=== PATIENT | female | born 1995 | race Caucasian/White ===

== ENCOUNTER 2018-06-13 22:53 | Emergency (ER) | payer SELFPAY ==
[2018-06-13 23:05] VITALS: BP 112/71; PULSE 76; RESP 18; TEMP 36.6; O2SAT 100; BMI 24.0
--- NOTE | 2018-06-14 00:23 | DI.RAD.S_ITS ---
PROCEDURE: XR CHEST 1V INDICATIONS: syncope TECHNIQUE: One view of the chest was acquired. COMPARISON: None. FINDINGS: Surgical changes and devices: None. Lungs and pleura: No pleural effusions or pneumothorax. Lungs are clear. Mediastinum: Mediastinal contours appear normal. Heart size is normal. Bones and chest wall: No suspicious bony lesions. Overlying soft tissues appear unremarkable. IMPRESSION: No acute pulmonary process. Dictated by: Joy Mcintyre M.D. on 06/14/2018 at 8:56 Approved by: Joy Mcintyre M.D. on 06/14/2018 at 8:56
[2018-06-14 00:44] VITALS: BP 115/75; PULSE 76; RESP 18; O2SAT 100
--- NOTE | 2018-06-14 00:49 | ED.SYNCOPE ---
HPI - Syncope General Chief Complaint: Syncope Stated Complaint: FAINTED, LT SIDED NUMBNESS Time Seen by Provider: 06/14/18 00:21 Source: patient and other (friends) Mode of arrival: ambulatory Limitations: no limitations History of Present Illness HPI narrative: This is a 23-year-old female who comes to the emergency department with complaint of syncope. Patient states that she had been dabbing or beeping and smoking marijuana as well as had a beer this evening. Patient states that she did really have any preliminary warning signs and then passed out. She states that she could really here he states could really see anything. She feels like she was out for a minute or 2. She still feels a little bit weak. She denies any headache, no vision changes otherwise Um, no chest pain or shortness of breath. She had some nausea, she has not had any vomiting. No diarrhea constipation no urinary frequency or urgency. She has had 2 episodes before where she has passed out once while exercising and once when she had a gallbladder which she states perforated. She has had her gallbladder out. Patient denies any other medical problems. She also states that she had only 1 meal today and has not really been drinking any water. Her episode happened about 9:00 a.m. this evening. Patient's friend states that they were with her Um and that they had been smoking marijuana they deny any other illicit drugs. That the patient had been beeping Um and did have 1 or 2 beers. They state that she said she was not feeling well they went to get her some water and when they came back she passed out. The states that she fell to the ground, the states that her eyes were rolling around in her head. Did not describe any seizure-like activity. Patient was out for a minute or 2 and then back to normal baseline. Review of Systems Review of Systems All systems reviewed & are unremarkable except as noted in HPI and below Constitutional Reports fatigue, Denies fever(s), Denies headache(s), Denies malaise and Denies weakness Eyes Denies change in vision ENT Ears, Nose, Mouth, and Throat: Denies headache(s) Cardiovascular Denies chest pain, Denies diaphoresis, Reports syncope, Denies pedal edema, Denies irregular heart rhythm, Denies lightheadedness, Denies palpitations, Denies dyspnea, Denies dyspnea on exertion, Denies orthopnea and Denies slow heart rate Respiratory Denies chest congestion, Denies cough, Denies pain on inspiration, Denies dyspnea, Denies dyspnea on exertion and Denies wheezing Gastrointestinal Gastrointestinal: Denies abdominal pain, Denies change in bowel habits, Denies diarrhea, Reports nausea and Denies vomiting Genitourinary Denies hematuria, Denies urinary frequency, Denies dysuria, Denies flank pain and Denies urinary urgency Integumentary/Breasts Denies rash Neurologic Reports syncope, Denies headache(s) and Denies weakness Endocrine Reports fatigue and Denies palpitations Allergic/Immunologic Denies wheezing PFSH Surgical History History of cholecystectomy (Acute) Social History Smoking Status: Current every day smoker Smokeless tobacco user: other alcohol intake: current substance use type: marijuana Exam Narrative Exam Narrative: GEN: well nourished, well appearing female, alert and oriented x 3, patient appears to be in no acute distress. HEENT: Atraumatic, pupils are equal round reactive to light, extraocular movements are intact, nares are clear, TMs are clear with no fluid, there is no conjunctival pallor. Throat is clear without any exudates, erythema, tonsillar enlargement or uvular deviation HEART: Regular rate and rhythm without murmur, clicks, rubs. LUNGS:Lungs clear to auscultation, no wheezes, rales, crackles, chest moves symmetrically ABD:bowel sounds normal, soft, non-tender, no guarding, rebound, rigidity, no masses noted, no hepatosplenomegaly :No CVA tenderness MSCL: Non-tender, no muscle atrophy, muscles strength 5/5 upper and lower extremities, full range of motion, normal gait NEURO:CN 2-12 intact, sensation normal Initial Vital Signs Initial Vital Signs: Vital Signs Temperature 97.9 F 06/13/18 23:05 Pulse Rate 76 06/13/18 23:05 Respiratory Rate 18 06/13/18 23:05 Blood Pressure 112/71 06/13/18 23:05 Pulse Oximetry 100 06/13/18 23:05 Course Orders Ordered: ED Orders 06/14/18 EKG-12 Lead Routine 06/14/18 00:23 XR chest 1V Stat 06/14/18 01:00 Urine Drug Screen, Rapid Stat Vital Signs - 8 hr 06/13/18 23:05 06/14/18 00:44 06/14/18 01:33 Temperature 97.9 F Pulse Rate 76 76 71 Respiratory Rate 18 18 20 Blood Pressure 112/71 Blood Pressure [Left Arm] 115/75 113/58 L Pulse Oximetry 100 100 99 MDM - Syncope Lab Data Lab Results 06/14/18 Range/Units 01:00 Urine Opiates Screen Negative (Negative) Ur Oxycodone Screen Negative (Negative) Urine Methadone Screen Negative (Negative) Ur Barbiturates Screen Negative (Negative) U Tricyclic Antidepress Negative (Negative) Ur Phencyclidine Scrn Negative (Negative) Ur Amphetamines Screen Negative (Negative) U Methamphetamines Scrn Negative (Negative) Ur MDMA Scrn (Ecstasy) Negative (Negative) U Benzodiazepines Scrn Negative (Negative) Urine Cocaine Screen Negative (Negative) U Marijuana (THC) Screen Positive H (Negative) Point of Care Testing Test Results Negative Urine Dip Bedside Urine Glucose Negative Bedside Urine Bilirubin - Negative Bedside Urine Ketone - Negative Urine Specific [place] 1.015 Bedside Urine Occult Blood - Negative Bedside Urine pH 6.0 Bedside Urine Protein - Negative Bedside Urine Urobilinogen - Negative Bedside Urine Nitrite - Negative Bedside Urine Leukocytes - Negative Esterase Imaging Data Chest x-ray: Attestation: I personally reviewed and interpreted this imaging study as follows: My impression: no acute process, no infiltrate, no pneumothorax. Patient has foreign bodies consistent with piercings. ECG Data Attestation: I personally reviewed and interpreted this ECG as follows: Interpretation: Sinus rhythm with sinus arrhythmia with a rate of 63, P are interval of 126, QRS of 102 and QTC of 403. No ST elevation or depression is appreciated. [facility] Narrative Medical decision making narrative: I suspect with patient not having any fluids recently, only 1 meal today early in the day, ingesting tobacco, as well as marijuana and alcohol that she had a syncopal event. She is feeling back to baseline. We discussed lab work but is deferred at this time. A urinalysis shows no infection, proteinuria, no . Discharge Plan Departure Patient Disposition: Home Clinical Impression: Syncope Discharge Date/Time: 06/14/18 01:45 Interventions: ED Discharge Assessment Last Done: 06/14/18 01:53 Instructions: DI for Syncope in Adults (Fainting) Activity Restrictions/Additional Instructions: Follow-up with primary care physician in the next week if her symptoms are not completely resolved. I would recommend making sure your eating and drinking plenty during the day. I would avoid any tobacco, Alcohol or marijuana for the next several days and do not use these in combination. return to the ER for recurrent symptoms, passing out, chest pain, shortness of breath, sudden severe headaches, new abdominal pain, persistent vomiting or other new or concerning symptoms. Referrals: [facility] [Provider Group] [facility] [Provider Group]
[2018-06-14 01:33] VITALS: BP 113/58; PULSE 71; RESP 20; O2SAT 99
[2018-06-14 01:41] LABS: Urine Amphetamines Negative (Negative); Urine Barbiturates Negative (Negative); Urine Benzodiazepines Negative (Negative); Urine Cocaine Negative (Negative); Urine MDMA Negative (Negative); Urine Methadone Negative (Negative); Urine Methamphetamines Negative (Negative); Urine Morphine/Opi cutoff 2000 Negative (Negative); Urine Oxycodone Negative (Negative); Urine Phencyclidine Negative (Negative); Urine Tetrahydrocannabinol Positive (Negative); Urine Tricyclic Antidepressant Negative (Negative)
== END 2018-06-14 01:45 | disposition home or self-care (01) ==
PROVIDERS: Emergency Provider Emergency Medicine
DX: R55 Syncope and collapse (principal)
CPT/HCPCS: 71045; 80305; 81003; 81025; 93005; 99282; 99285